=== PATIENT | female | born 1960 | race Caucasian/White ===

== ENCOUNTER 2021-12-06 06:36 | Inpatient (IN) ==
[~2021-12-06 06:36] MED LIST: Acetaminophen IV 1,000 MG/100 ML BAG IVPB ONE; Famotidine 20 MG/2 ML VIAL IVP ONE; Ringers Solution, Lactated 1,000 ML IVC ONE
[2021-12-06] MEDS ORDERED: Vancomycin 1,250 MG/262.5 ML IV.SOLN IVPB ONE ×2 (06:55→19:30)
[2021-12-06] MEDS ORDERED: CeFAZolin Syr 2,000MG/20 ML 2,000 MG/20 ML SYRINGE IVPB ONE (06:55)
[2021-12-06] MEDS ORDERED: *HR* Rocuronium Bromide 50 MG/5 ML VIAL ONE (07:02)
[2021-12-06] MEDS ORDERED: *HR* Propofol 200 MG/20 ML VIAL IVP ONE (07:02)
[2021-12-06] MEDS ORDERED: *HR* FentaNYL (PF) 100 MCG/2 ML VIAL ONE (07:02)
[2021-12-06] MEDS ORDERED: *HR* Succinylcholine 200 MG/10 ML VIAL IVP ONE (07:02)
[2021-12-06] MEDS ORDERED: Lidocaine HCL 4 ML Topical Solution (Laryng-O-Jet Kit Sterile Pak) TP ONE (07:02)
[2021-12-06] MEDS ORDERED: *HR* Midazolam HCl 2 MG/2 ML VIAL ONE (07:02)
[2021-12-06] MEDS ORDERED: Ondansetron 4 MG/2 ML VIAL ONE (07:02)
[2021-12-06] MEDS ORDERED: Lidocaine -MPF 2% 2 ML VIAL ONE (07:05)
[2021-12-06] MEDS ORDERED: *HR* Remifentanil 2 MG VIAL IVP ONE (07:09)
[2021-12-06] MEDS ORDERED: Heparin 1,000 UNITS/500 mL 500 ML ONE ×2 (07:12→07:20)
[2021-12-06] MEDS ORDERED: *HR* Phenylephrine 10 MG/ML VIAL ONE (07:18)
[2021-12-06] MEDS ORDERED: Protamine Sulfate 50 MG/5 ML VIAL IVP ONE (07:20)
[2021-12-06] MEDS ORDERED: Bupivacaine-MPF 0.25% 10 ML VIAL ONE (07:20)
[2021-12-06] MEDS ORDERED: Naloxone 0.4 MG/ML INJ IVP PRN ×2 (07:33→12:48)
[2021-12-06] MEDS ORDERED: *HR* HYDROmorphone PF 0.5 MG/0.5 ML SYRINGE IVP PRN (07:33)
[2021-12-06] MEDS ORDERED: Nitroglycerin 0.4 MG TAB.SUBL SL PRN (07:33)
[2021-12-06] MEDS ORDERED: Ondansetron 4 MG/2 ML VIAL IVP PRN (07:33)
[2021-12-06] MEDS ORDERED: Albuterol 2.5 MG/3 ML NEBULIZER IH PRN (07:33)
[2021-12-06] MEDS ORDERED: Vancomycin 1,000 MG, Sodium Chloride IRRigation 1,000 ML IR ONE (07:45)
[2021-12-06] MEDS ORDERED: *HR* Labetalol 20 MG/4 ML SYRINGE IVP ONE (09:40)
[2021-12-06] MEDS ORDERED: 0.9 % Sodium Chloride 1,000 ML IVC SCH (12:48)
[2021-12-06] MEDS ORDERED: *HR* OxyCODONE Immed Rel 5 MG TABLET PO PRN (12:48)
[2021-12-06] MEDS ORDERED: Acetaminophen 325 MG TABLET PO PRN (12:48)
[2021-12-06] MEDS ORDERED: *HR* LORazepam 0.5 MG TABLET PO PRN (12:48)
[2021-12-06] MEDS: *HR* Metoprolol 5 MG/5 ML VIAL IVP SCH ×3 (13:20→22:11)
[2021-12-06] MEDS: CeFAZolin 2 GM/120 ML BAG IVPB SCH ×2 (14:41→22:11)
[2021-12-06] MEDS: *HR* HYDROcodone/Acet 5/325 mg TABLET PO PRN (14:56)
[2021-12-07] MEDS: *HR* HYDROcodone/Acet 5/325 mg TABLET PO PRN (03:33)
[2021-12-07] MEDS: *HR* Metoprolol 5 MG/5 ML VIAL IVP SCH (05:12)
[2021-12-07] MEDS ORDERED: *HR* Heparin 5,000 UNIT/ML VIAL SQ SCH ×2 (06:00)
[2021-12-07] MEDS: *HR* Labetalol 20 MG/4 ML SYRINGE IVP PRN ×2 (07:45→09:29)
[2021-12-07] MEDS ORDERED: Aspirin Enteric Coated 81 MG Tablet PO SCH (09:00)
[2021-12-07] MEDS ORDERED: BuPROPion XL (24 HR) 150 MG TABLET PO SCH (09:00)
[2021-12-07] MEDS ORDERED: amLODIPine 5 MG TABLET PO SCH (09:00)
[2021-12-07 11:01] VITALS: BP 151/55; PULSE 65; TEMP 98; O2SAT 91
== END 2021-12-07 12:16 | disposition home or self-care (01) | DRG 39 ==
LOC: SAMDAY 06:36 → 2NNU 07:46
PROVIDERS: ADMIT Surgery; ATTEND Surgery